=== PATIENT | female | born 1965 | race Caucasian/White ===

== ENCOUNTER 2018-02-05 00:26 | Emergency (ER) | payer BC ==
--- NOTE | 2018-02-05 00:53 | Emergency Department Record ---
History of Present Illness - General Chief complaint: Pain Stated complaint: L SHOULDER, NECK PAIN Time Seen by Provider: 02/05/18 00:46 Source: Patient Mode of Arrival: Ambulatory Limitations: No limitations - History of Present Illness Initial comments: 53 yo female presents to ED for evaluation of left sided neck and infra-mammary pain that has been constant for approximately 20 hours. Patient reports that her pain symptoms did not improve with rest, did not worsen with exertion at work. Patient denies fevers, chills, cough, or recent illness. Patient denies lower extremity swelling or history of DVT. Patient denies previous heart disease, but does report history of HTN. MD Complaint: Neck Pain Onset/Timin -: Hour(s) Location: Left History of Same: No Radiation: Other Quality: Other Consistency: Constant, Getting worse Improves with: Nothing Worsens with: Exertion Associated Symptoms: Denies other symptoms - Related Data Home Medications Medication Instructions Recorded Confirmed Last Taken No Home Med [NO HOME MEDS] 02/05/18 02/05/18 Unknown Allergies Allergy/AdvReac Type Severity Reaction Status Date / Time No Known Drug Allergies Allergy Verified 02/05/18 00:28 Travel Screening - Travel/Exposure Within Last 30 Days Have you traveled within the last 30 days?: No - Travel Symptoms Symptom Screening: None Review of Systems Constitutional: Denies: Chills, Fever, Malaise, Night sweats Eyes: Denies: Eye discharge, Eye pain ENT: Denies: Congestion, Ear pain, Epistaxis Respiratory: Denies: Cough, Dyspnea Cardiovascular: Denies: Chest pain, Dyspnea on exertion, Edema Endocrine: Denies: Fatigue, Heat or cold intolerance Gastrointestinal: Denies: Abdominal pain, Nausea, Vomiting Genitourinary: Denies: Incontinence, Retention Musculoskeletal: Reports: Back pain (Left posterior rib pain). Denies: Arthralgia Skin: Denies: Bruising, Change in color Neurological: Denies: Abnormal gait, Confusion, Headache, Seizure Psychiatric: Denies: Anxiety Hematological/Lymphatic: Denies: Anemia, Blood Clots Past Medical History - SOCIAL HISTORY Smoking Status: Never smoker Alcohol Use: Occasional, Heavy Drug Use: None - RESPIRATORY Hx Respiratory Disorders: No - CARDIOVASCULAR Hx Cardio Disorders: Yes Hx Hypertension: Yes - NEURO Hx Neuro Disorders: No - GI Hx GI Disorders: No - Hx Genitourinary Disorders: No - ENDOCRINE Hx Endocrine Disorders: No - MUSCULOSKELETAL Hx Musculoskeletal Disorders: No - PSYCH Hx Psych Problems: No - HEMATOLOGY/ONCOLOGY Hx Hematology/Oncology Disorders: No Family Medical History Any Significant Family History?: Yes Hx Cancer: Father, Mother *Cancer Comment: lung/sinus, breast -mother Hx HTN: Father Physical Exam - General General Appearance: Alert, Oriented x3, Cooperative, No acute distress Limitations: No limitations - Head Head exam: Atraumatic, Normocephalic, Normal inspection Head exam detail: negative: Abrasion, Contusion, Rice's sign, General tenderness, Hematoma, Laceration - Eye Eye exam: Normal appearance. negative: Conjunctival injection, Periorbital swelling, Periorbital tenderness, Scleral icterus - ENT Ear exam: negative: Auricular hematoma, Auricular trauma Nasal Exam: negative: Active bleeding, Discharge, Dried blood, Foreign body Mouth exam: negative: Drooling, Laceration, Muffled voice, Tongue elevation - Neck Neck exam: Normal inspection. negative: Meningismus, Tenderness - Respiratory Respiratory exam: Normal lung sounds bilaterally. negative: Rales, Respiratory distress, Rhonchi, Stridor - Cardiovascular Cardiovascular Exam: Regular rate, Normal rhythm, Normal heart sounds - GI/Abdominal GI/Abdominal exam: Soft. negative: Rebound, Rigid, Tenderness - Rectal Rectal exam: Deferred - exam: Deferred - Extremities Extremities exam: Normal inspection. negative: Calf tenderness, Pedal edema, Tenderness - Back Back exam: Denies: CVA tenderness (R), CVA tenderness (L) - Neurological Neurological exam: Alert, Normal gait, Oriented X3 - Psychiatric Psychiatric exam: Normal affect, Normal mood - Skin Skin exam: Normal color. negative: Abrasion Type of lesion: negative: abrasion Course Vital Signs 02/05/18 00:31 Temperature 97.9 F Pulse Rate 65 Respiratory 18 Rate Blood Pressure 147/74 Pulse Ox 99 - Reevaluation(s) Reevaluation #1: 02/05/18 00:56 EKG: NSR 60 LAD, normal intervals No acute ST-T changes Patient was seen and examined, denies specific chest pain symptoms/complaints, symptoms seem atypical and the patient overall is low-risk with no significant cardiac history/family cardiac history. As the patient's symptoms have been constant for approximately 20 hours, single troponin appears sufficient to exclude acute cardiac injury. Patient agrees with the plan of care as discussed. Reevaluation #2: 10/10/18 01:28 Labs reviewed and are grossly unremarkable for an acute process. The patient was deemed to be low-risk for cardiac disease based on the patient s history and evaluation in the ED, HEART Score was applied and found to be 2. The patient may be discharged home with appropriate outpatient follow-up for further evaluation. Medical Decision Making - Lab Data Result diagrams: 02/05/18 00:38 02/05/18 00:38 Disposition Disposition: Discharge Clinical Impression: Atypical chest pain Disposition: Home, Self-Care Condition: (2) Stable Instructions: Neck Pain (ED) Additional Instructions: Return to ED if your symptoms worsen or if you have any concerns. Follow-up with Cardiology for outpatient stress testing in the [facility]. Referrals: BRADY DOMINGUEZ M.D. [MEDICAL DOCTOR] - [facility] [Provider Group] Forms: Patient Portal Access Time of Disposition: 01:30 Quality - Quality Measures Quality Measures: N/A - Blood Pressure Screening Does Patient Have Any of the Following: Active Dx of HTN Blood Pressure Classification: Hypertensive Reading Systolic Measurement: 147 Diastolic Measurement: 74 Screening for High Blood Pressure: Patient Exclusion, Hx of HTN [G9744]
[2018-02-05] MEDS ORDERED: ASPIRIN 81 MG CHEWABLE TABLET PO ONE (00:56)
[2018-02-05 01:03] LABS: HEMATOCRIT 39.5 % (35.0-47.0); HEMOGLOBIN 12.9 gm/dl (11.6-16.0); MEAN CORPUSCULAR HEMOGLOBIN 30.7 pg (27-33); MEAN CORPUSCULAR HGB CONC 32.7 g/dl (32-36); MEAN PLATELET VOLUME 9.4 fl (7.4-10.4); PLATELET COUNT 306 K/uL (130-400); RED CELL DISTRIBUTION WIDTH 12.7 % (11.5-14.5); WHITE BLOOD COUNT W/O DIFF 4.6 K/uL (4.2-12.2)
[2018-02-05 01:14] LABS: BLOOD UREA NITROGEN 16 mg/dL (6-20); CREATININE 0.8 mg/dL (0.5-0.9); EST GLOMERULAR FILTRATION RATE > 60 mL/min
[2018-02-05 01:15] LABS: TOTAL PROTEIN 6.9 g/dL (6.6-8.7)
[2018-02-05 01:17] LABS: GLUCOSE,RANDOM 105 mg/dL (74-109)
[2018-02-05 01:20] LABS: ALB/GLOB RATIO 1.7 (1.1-1.8); ALBUMIN 4.3 g/dL (4.0-5.0); ALKALINE PHOSPHATASE 56 U/L (35-104); ALT/SGPT 12 U/L (<33); AST/SGOT 15 U/L (10.0-35.0)
[2018-02-05 01:34] LABS: PLATELET ESTIMATE NORMAL (NORMAL)
== END 2018-02-05 01:42 | disposition home or self-care (01) ==
LOC: ER 00:26
DX: R07.89 Other chest pain (principal); M54.2 Cervicalgia; M25.512 Pain in left shoulder; I10 Essential (primary) hypertension
CPT/HCPCS: 71046; 80053; 84484; 85027; 93005; 99284